=== PATIENT | male | born 1995 | race Caucasian/White ===

== ENCOUNTER 2023-03-04 13:03 | Emergency (ER) | payer OTHER, SELFPAY ==
[2023-03-04 13:12] VITALS: BP 131/70; PULSE 100; RESP 20; TEMP 38.1; O2SAT 98
--- NOTE | 2023-03-04 13:29 | ED.FEVER ---
HPI - Fever General Chief Complaint: Fever Stated Complaint: Fever Time Seen by Provider: 03/04/23 13:29 History of Present Illness HPI Narrative: 27-year-old male presented for complaint of cough, vomiting, and fever. Onset yesterday. Temp up to 101 at home. Today he took DayQuil and ibuprofen. He denies shortness of breath, wheezing, diarrhea, lethargy. Denies sick contacts. Related Data Allergies Allergy/AdvReac Type Severity Reaction Status Date / Time Penicillins AdvReac Unknown Verified 03/04/23 13:20 Review of Systems Review of Systems: CONSTITUTIONAL: reports fever, chills EYES: Denies visual changes, redness, or discharge. ENT: reports rhinorrhea, congestion, denies sore throat or otalgia. CARDIOVASCULAR: Denies chest pain, palpitations, or edema. RESPIRATORY: Reports cough Denies dyspnea. GASTROINTESTINAL: Denies abdominal pain, or diarrhea. reports nausea, vomiting SKIN: Denies rash, itching, or wounds. MUSCULOSKELETAL: Denies back pain, joint pain, or myalgia. NEUROLOGIC: Denies headache [facility] Past Medical History Medical History (Updated 03/04/23 @ 13:55 by Demi Perez, [employer]) No pertinent past medical history Exam Narrative: GENERAL: mildly Ill-appearing, no acute distress. EYES: conjunctivae clear ENT: Mucous membranes moist. TMs pearly carrillo with normal light reflex bilaterally; no tragal tenderness. Oropharynx not erythematous without lesions. Tonsils not enlarged and without exudate. No drooling, no hoarseness, no trismus, uvula midline. No tripod positioning, hot potato voice, or soft palate swelling. NECK: Supple. No lymphadenopathy CHEST: Clear to auscultation, breath sounds equal. No respiratory distress, speaks in full sentences. HEART: Regular rate and rhythm. No murmur heard. SKIN: Warm, dry, no rash. NEURO: Alert and oriented x3. Course Course Emergency Course: Patient is aware of diagnosis, understands and agrees to treatment plan. Anticipatory guidance given. Patient agrees to follow-up as directed and is aware of reasons to seek care at the emergency department. Portions of this record may have been created with voice recognition software Level of Care: Express Care Visit Vital Signs Vital signs: Vital Signs Temperature 100.5 F H 03/04/23 13:12 Pulse Rate 100 03/04/23 13:12 Respiratory Rate 20 03/04/23 13:12 Blood Pressure 131/70 03/04/23 13:12 Pulse Oximetry 98 03/04/23 13:12 Oxygen Delivery Room Air 03/04/23 13:12 Temperature 100.5 F H 03/04/23 13:12 Pulse Rate 100 03/04/23 13:12 Respiratory Rate 20 03/04/23 13:12 Blood Pressure 131/70 03/04/23 13:12 Pulse Oximetry 98 03/04/23 13:12 Oxygen Delivery Room Air 03/04/23 13:12 MDM - Fever MDM Narrative Medical decision making narrative: POS flu, Results of tests reviewed with patient. Discussed physical exam findings. Discussed risks and benefits of tamiflu, he would like Rx. Advised supportive measures and signs/symptoms to go to the ER. Pt is appropriate for outpt treatment and f/u. Differential Diagnosis Differential diagnosis: Likely other ( Influenza, covid, sinusitis, OM, strep pharyngitis, URI, gastroenteritis, UTI, pyelonephritis, sepsis, pneumonia) Lab Data Labs: Influenza A Screen Positive Reference Range: Negative Influenza B Screen Negative Reference Range: Negative Discharge Plan Discharge Clinical Impression: Influenza Patient Disposition: Home, Self-Care Condition: Stable Instructions: Antibiotic Form, Influenza (ED) Additional Instructions: Influenza positive You should avoid crowds/work until you are fever free for 24 hours without the use of fever reducing medications, or the symptoms are improved Rest. Drink plenty of fluids. Tylenol 1000mg every 8 hours as needed for pain/fever
== END 2023-03-04 14:05 | disposition home or self-care (01) ==
PROVIDERS: Emergency Provider Nurse Practitioner Family
DX: J10.1 Influenza due to other identified influenza virus with other respiratory manifestations (principal); Z20.822 Contact with and (suspected) exposure to COVID-19
CPT/HCPCS: 87426; 87804; 99213; C9803; G0463

== ENCOUNTER 2023-04-08 15:03 | Emergency (ER) | payer OTHER, SELFPAY ==
[2023-04-08 15:16] VITALS: BP 142/69; PULSE 83; RESP 16; TEMP 36.4; O2SAT 100
--- NOTE | 2023-04-08 15:53 | ED.GENADULT ---
HPI - General Adult General Chief complaint: Nausea/Vomiting/Diarrhea Stated complaint: Nausea Source: patient Mode of arrival: ambulatory Limitations: no limitations History of Present Illness HPI narrative: Patient presents requesting a note to allow him to return to work on Monday. He indicates he woke from sleep yesterday not feeling well. He thinks he had some food poisoning from chicken that he had consumed. He felt like he needed to rest so missed work yesterday. He had mild nausea. He took ibuprofen for his symptoms. His symptoms are improved. He is off today and tomorrow and would like to return to work on Monday. Related Data Allergies Allergy/AdvReac Type Severity Reaction Status Date / Time Penicillins AdvReac Unknown Verified 04/08/23 15:15 Review of Systems Review of Systems: CONSTITUTIONAL: Denies fever, chills, or sweats. EYES: Denies visual changes, redness, or discharge. ENT: Denies rhinorrhea, congestion, sore throat, or otalgia. CARDIOVASCULAR: Denies chest pain, palpitations, or edema. RESPIRATORY: Denies cough or dyspnea. GASTROINTESTINAL: Reports recent mild nausea. Denies abdominal pain, vomiting, or diarrhea. GENITOURINARY: Denies dysuria or hematuria. SKIN: Denies rash or itching. MUSCULOSKELETAL: Denies back pain, joint pain, or myalgia. NEUROLOGIC: Denies headache, numbness, dizziness, or weakness. PSYCHIATRIC: Denies anxiety or depression. [facility] Past Medical History Medical History (Updated 04/08/23 @ 15:55 by Ruel Colbert, [employer], ) No pertinent past medical history Surgical History Surgical History No pertinent past surgical history Family History Family History Mother Family history non-contributory Social History Social History Smoking status: Former smoker Living arrangements: with family Additional occupation/education comments: works at [employer] Gender identity (if verbalized by the patient): Male Exam Narrative: GENERAL: Well-appearing, well-nourished, and in no acute distress. HEAD: Normocephalic, atraumatic. EYES: PERRLA and EOMI. ENT: Nares clear, no rhinorrhea or epistaxis. Mucous membranes moist. Oropharynx without tonsillar hypertrophy exudate or other lesions. Bilateral TMs pearly carrillo nonbulging NECK: Supple. No adenopathy or masses. No carotid bruits or JVD CHEST: Clear to auscultation. No respiratory distress. No wheezes rales or rhonchi HEART: Regular rate and rhythm. No murmur heard. Normal peripheral pulses. ABDOMEN: Soft, nontender, nondistended, normal active bowel sounds. EXTREMITIES: Normal range of motion. No edema. SKIN: Warm, dry, no rash. NEURO: No focal deficits. Alert and oriented x3. PSYCH: Normal mood and affect. Course Course Emergency Course: This is a 27-year-old male who presented requesting a note to allow him to return to work. He states that his symptoms have subsided and he feels ready to return on Monday. Work note will be provided. He should follow-up with his primary provider. Patient in agreement with plan of care Level of Care: Express Care Visit Vital Signs Vital signs: Vital Signs Temperature 36.4 C 04/08/23 15:16 Pulse Rate 83 04/08/23 15:16 Respiratory Rate 16 04/08/23 15:16 Blood Pressure 142/69 H 04/08/23 15:16 Pulse Oximetry 100 04/08/23 15:16 Oxygen Delivery Room Air 04/08/23 15:16 Temperature 36.4 C 04/08/23 15:16 Pulse Rate 83 04/08/23 15:16 Respiratory Rate 16 04/08/23 15:16 Blood Pressure 142/69 H 04/08/23 15:16 Pulse Oximetry 100 04/08/23 15:16 Oxygen Delivery Room Air 04/08/23 15:16 Medical Decision Making Vital Signs Vital Signs: Vital Signs Temperature 36.4 C 04/08/23 15:16 Pulse Rate 83 04/08/23 15:16 Respiratory Rate 16
== END 2023-04-08 15:55 | disposition home or self-care (01) ==
PROVIDERS: Emergency Provider Nurse Practitioner
DX: Z02.79 Encounter for issue of other medical certificate (principal); Z87.891 Personal history of nicotine dependence
CPT/HCPCS: 99211; G0463